=== PATIENT | female | born 1980 | race Caucasian/White ===

== ENCOUNTER 2016-09-06 16:59 | Emergency (ER) | payer OTHER ==
[~2016-09-06 16:59] MED LIST: AMOXICILLIN875 MG PO; BACTRIM DS TABL1 TA1 PO; BACTRIM DS TABL1 TAB PO; NO MEDICATIONS; POLYTRIM EYE DR10 ML OP; TYLENOL325 MG/10. DOB
== END 2016-09-06 17:40 | disposition home or self-care (01) ==
LOC: SED 16:59
DX: S86.912A Strain of unspecified muscle(s) and tendon(s) at lower leg level, left leg, initial encounter (principal); S86.911A Strain of unspecified muscle(s) and tendon(s) at lower leg level, right leg, initial encounter; Z88.7 Allergy status to serum and vaccine; X50.0XXA Overexertion from strenuous movement or load, initial encounter; Y92.69 Other specified industrial and construction area as the place of occurrence of the external cause
CPT/HCPCS: 99283

== ENCOUNTER 2016-10-17 09:15 | Emergency (ER) | payer OTHER ==
--- NOTE | ~2016-10-17 | CR253 ---
[facility] A Service of [facility] & [facility] RADIOLOGY TEXT RESULTS PATIENT: ELIZABETH SMITH LOCATION: SED : 84 UNIT #: [id number] AGE: [address]: Melecio Gibson MD SEX: F ORDER DR: [id number] [address] [address] [id number] E MR#: [id number] Acc #: [id number] NAME: ELIZABETH SMITH : 1980 SEX: F STUDY DATE/TIME: 10/17/2016 10:52 UNIT: SED ROOM: STUDY DESCRIPTION: CR Tibia and Fibula 2 Views Rt Attending Physician: Melecio Gibson M.D. Ordering Physician: Melecio Gibson M.D. Primary Care Physician: No Primary Care Physician MEDICAL IMAGING REPORT This report is preliminary unless electronic signature is present. EXAM Tibia and fibula, right, 2 views; 10/17/2016. HISTORY Swelling. Pain lower tib-fib, knot 2-3 weeks. FINDINGS AP and lateral radiographs of the right tibia and fibula are presented. Poor quality examination. Clothing artifact overlies relevant anatomy. No traumatic fracture or malalignment is seen. Knee and ankle joints appear intact. There is no soft tissue defect, subcutaneous air or radiodense foreign body. Dictated by... Srinivas Dey M.D. THIS IS AN ELECTRONICALLY VERIFIED REPORT Srinivas Dey M.D. at 10/18/2016 4:57 PM Mark TD: 10/17/2016 23:22 JOB #: [id number] MEDICAL IMAGING REPORT Page 1 of 1
--- NOTE | ~2016-10-17 | US85 ---
[facility] A Service of [facility] RADIOLOGY TEXT RESULTS PATIENT: ELIZABETH SMITH LOCATION: SED : [birth year] UNIT #: [id number] AGE: [address]: Melecio Gibson MD SEX: F ORDER DR: [id number] [place] [id number] E MR#: [id number] Acc #: [id number] NAME: ELIZABETH SMITH. : 1980 SEX: F STUDY DATE/TIME: 10/17/2016 10:23 UNIT: SED ROOM: STUDY DESCRIPTION: [facility] [employer] [facility] Attending Physician: Melecio Gibson M.D. Ordering Physician: Melecio Gibson M.D. Primary Care Physician: No Primary Care Physician MEDICAL IMAGING REPORT This report is preliminary unless electronic signature is present. EXAMINATION Right lower extremity Doppler venous ultrasound. DATE 10/17/2016 HISTORY Palpable abnormality in the right ankle for [id number] weeks. Right ankle pain for [id number] weeks. COMPARISON None. TECHNIQUE Venous ultrasound examination of the right lower extremity was performed using grayscale, spectral Doppler and color flow Doppler imaging. FINDINGS The examination is negative. There is no evidence of right lower extremity deep venous thrombus from the groin to the lower calf. Visualized greater saphenous vein is also patent. IMPRESSION Negative examination. No evidence of right lower extremity DVT. Dictated by... Sarah De Oliveira M.D. THIS IS AN ELECTRONICALLY VERIFIED REPORT Sarah De Oliveira M.D. at 10/18/2016 5:[address] [facility] A Service of [facility] RADIOLOGY TEXT RESULTS PATIENT: ELIZABETH SMITH LOCATION: SED : 84 UNIT #: [id number] AGE: [address]: Melecio Gibson MD SEX: F ORDER DR: TD: 10/17/2016 20:32 JOB #: [id number] MEDICAL IMAGING REPORT Page 1 of 1
== END 2016-10-17 12:25 | disposition home or self-care (01) ==
LOC: SED 09:15
DX: D17.23 Benign lipomatous neoplasm of skin and subcutaneous tissue of right leg (principal); Z87.891 Personal history of nicotine dependence; Z98.890 Other specified postprocedural states; Z88.8 Allergy status to other drugs, medicaments and biological substances
CPT/HCPCS: 73590; 93971; 99284